=== PATIENT | male | born 1985 | race Caucasian/White ===

== ENCOUNTER 2019-02-14 18:14 | Emergency (ER) | payer BC ==
[~2019-02-14] VITALS: Ht 172.7 cm; Wt 63.5 kg
[2019-02-14 18:20] VITALS: BP 114/78
== END 2019-02-14 20:19 | disposition home or self-care (01) ==
LOC: ER 18:19
DX: S82.61XA Displaced fracture of lateral malleolus of right fibula, initial encounter for closed fracture (principal); W01.0XXA Fall on same level from slipping, tripping and stumbling without subsequent striking against object, initial encounter; Y93.89 Activity, other specified; Y92.89 Other specified places as the place of occurrence of the external cause; Y99.8 Other external cause status
CPT/HCPCS: 73610-TC